=== PATIENT | male | born 1965 | race Hispanic/Latino ===

== ENCOUNTER → 2019-03-24 | Day surgery (SDC) | payer BC ==
[~2019-03-24] MED LIST: AMLODIPINE BESYL5 MG PO; ATORVASTATIN CA20 MG PO; GLIPIZIDE ER5 MG PO; JARDIANCE PO; LIDOCAINE HCL 2% LOCAL INJ 5 ML SDV VIAL INJ ONE; MIDAZOLAM HCL 2 MG/2 ML VIAL ONE; PROPOFOL IV EMULSION 10 MG/ML 20 ML VIAL ONE; VITAMIN E400 UNI1 PO
[2019-03-24 12:30] VITALS: BP 120/70
== END | disposition home or self-care (01) ==
LOC: OR 08:54
PROVIDERS: ATTEND Internal Medicine
DX: Z12.11 Encounter for screening for malignant neoplasm of colon (principal); D12.5 Benign neoplasm of sigmoid colon; D12.8 Benign neoplasm of rectum; K63.89 Other specified diseases of intestine; K21.9 Gastro-esophageal reflux disease without esophagitis; K76.0 Fatty (change of) liver, not elsewhere classified; E11.9 Type 2 diabetes mellitus without complications; I10 Essential (primary) hypertension; F10.10 Alcohol abuse, uncomplicated; Z88.1 Allergy status to other antibiotic agents; Z88.8 Allergy status to other drugs, medicaments and biological substances; Z01.810 Encounter for preprocedural cardiovascular examination; Z79.84 Long term (current) use of oral hypoglycemic drugs; Z80.0 Family history of malignant neoplasm of digestive organs
CPT/HCPCS: 36415; 45380; 45385; 82948; 93005; J2001; J2250; J2704; 45378; 45384

== ENCOUNTER 2020-03-19 13:23 | Observation (INO) | payer BC ==
[~2020-03-19] VITALS: Ht 172.7 cm; Wt 85.3 kg
[~2020-03-19 13:23] MED LIST changes: -LIDOCAINE HCL 2% LOCAL INJ 5 ML SDV VIAL INJ ONE; -MIDAZOLAM HCL 2 MG/2 ML VIAL ONE; -PROPOFOL IV EMULSION 10 MG/ML 20 ML VIAL ONE
[2020-03-19 14:17] LABS: BASOPHILS # (AUTO) 0.1 (0.0-0.1); BASOPHILS % 1.3 % (0.0-1.0); EOSINOPHILS # (AUTO) 0.2 (0.0-0.4); EOSINOPHILS % 2.3 % (0.0-6.0); HEMOGLOBIN 14.3 g/dL (14.0-18.0); LYMPHOCYTES % 28.9 % (18.0-39.1); MEAN CORPUSCULAR HEMOGLOBIN 32.4 pg (28-32); MEAN CORPUSCULAR HGB CONC 35.8 g/dL (31-35); MEAN CORPUSCULAR VOLUME 90.5 fL (81-99); MONOCYTES # (AUTO) 0.7 (0.2-0.8); MONOCYTES % 10.5 % (4.4-11.3); NEUTROPHILS % 56.6 % (38.7-80.0); RED BLOOD COUNT 4.42 x10e6/uL (4.3-5.7); RED CELL DISTRIBUTION WIDTH 11.6 % (11.7-14.4)
[2020-03-19 14:28] LABS: INR 1.12; PARTIAL THROMBOPLASTIN TIME 27.5 seconds (23.8-35.5)
[2020-03-19 14:37] LABS: ALANINE AMINOTRANSFERASE 170 IU/L (0-55); ALBUMIN 4.5 g/dL (3.5-5.0); ALBUMIN/GLOBULIN RATIO 1.5 (0.8-2.0); ALKALINE PHOSPHATASE 81 IU/L (40-150); ANION GAP 12.8 mmol/L (8-16); BLOOD UREA NITROGEN 7 mg/dL (7-26); BUN/CREATININE RATIO 9 (6-25); CARBON DIOXIDE 23 mmol/L (22-29); CHLORIDE 102 mmol/L (98-107); CREATININE, SERUM 0.77 mg/dL (0.72-1.25); EST GLOMERULAR FILTRATION RATE > 60 ML/MIN (60-); GLUCOSE 140 mg/dL (74-118); POTASSIUM 3.8 mmol/L (3.5-5.1); SODIUM 134 mmol/L (136-145)
[2020-03-19 14:51] LABS: PLATELET COUNT 16 x10e3/uL (140-360)
[2020-03-19] MEDS ORDERED: METHYLPREDNISOLONE SOD SUCC 125 MG/2ML VIAL IV STA (15:01)
[2020-03-19 15:11] LABS: PLATELET ESTIMATE MARKEDLY DECREASED; PLATELET MORPHOLOGY COMMENT NORMAL; RBC MORPHOLOGY COMMENT NORMAL
--- NOTE | 2020-03-19 15:28 | Emergency Department Note ---
History of Present Illnes History of Present Illness Chief Complaint: General Medicine Complaints History of Present Illness This is a 55 year old male PATIENT IN FROM HOME; STATES HIS PCP SENT HIM FOR EVALUATION OF LOW PLATELETS. PATIENT STATES THAT HE HAD BLEEDING GUMS X 3 DAYS AND A SLIGHT NOSEBLEED. PATIENT DENIES PAIN, OR SHORTNESS OF BREATH. PATIENT ALERT AND ORIETNED, RESP EVEN AND NONLABORED, APPEARS IN NO DISTRESS, AMBULATORY WITHOUT ASSISTANCE. Historian: Patient Arrival Mode: Car [employer] Required: No Onset (how long ago): day(s) (5) Radiation: Reports non-radiation Severity: moderate Onset quality: sudden Timing of current episode: intermittent Progression: improving Chronicity: new Context: Denies recent illness Relieving factors: none Exacerbating factors: none Associated symptoms: Reports denies other symptoms Past Medical/Family History Physician Review I have reviewed the patient's past medical and family history. Any updates have been documented here. Past Medical History Recent Fever: No Clinical Suspicion of Infectio: No New/Unexplained Change in Ment: No Past Medical History: Hypertension, Diabetes, Liver Disease Other Medical History: FATTY LIVER Past Surgical History: Appendectomy, T&A Other Surgery: VASECTOMY Social History Smoking Cessation: Never Smoker Counseling Performed: No Alcohol Use: Social Any Illegal Drug Use: No TB Exposure/Symptoms: No Physically hurt or threatened: No Family History Family history of heart diseas: No Other Any Pre-Existing Lines (PICC,: No Review of Systems Review of Systems Constitutional: Reports no symptoms EENTM: Reports as per HPI Cardiovascular: Reports no symptoms Respiratory: Reports no symptoms Gastrointestinal: Reports no symptoms Genitourinary: Reports no symptoms Musculoskeletal: Reports no symptoms Integumentary: Reports no symptoms Neurological: Reports no symptoms Psychological: Reports no symptoms Endocrine: Reports no symptoms Hematological/Lymphatic: Reports no symptoms Physical Exam Related Data Allergies: Coded Allergies: cefuroxime (Verified Allergy, Unknown, RASH, 03/19/20) naproxen (Verified Allergy, Unknown, RASH, 03/19/20) Triage Vital Signs Vital Signs Date Time Temp Pulse Resp B/P (MAP) Pulse Ox O2 Delivery O2 Flow Rate FiO2 03/19/20 13:30 98.6 63 20 163/92 100 Room Air Vital signs reviewed: Yes Physical Exam CONSTITUTIONAL Constitutional: Present well-developed, Present well-nourished HENT HENT: Present normocephalic, Present atraumatic, Present oropharynx clear/moist, Present nose normal HENT L/R: Present left ext ear normal, Present right ext ear normal EYES Eyes: Reports PERRL, Reports conjunctivae normal NECK Neck: Present ROM normal PULMONARY Pulmonary: Present effort normal, Present breath sounds normal CARDIOVASCULAR Cardiovascular: Present regular rhythm, Present heart sounds normal, Present capillary refill normal, Present normal rate GASTROINTESTINAL Abdominal: Present soft, Present nontender, Present bowel sounds normal GENITOURINARY Genitourinary: Present exam deferred SKIN Skin: Present warm, Present dry MUSCULOSKELETAL Musculoskeletal: Present ROM normal NEUROLOGICAL Neurological: Present alert, Present oriented x 3, Present no gross motor or sensory deficits PSYCHOLOGICAL Psychological: Present mood/affect normal, Present judgement normal Results Laboratory Result Diagram: 03/19/20 1350 03/19/20 1350 Laboratory Laboratory Tests Test 03/19/20 13:50 White Blood Count 7.05 x10e3/uL (4.8-10.8) Red Blood Count 4.42 x10e6/uL (4.3-5.7) Hemoglobin 14.3 g/dL (14.0-18.0) Hematocrit 40.0 % (38.2-49.6) Mean Corpuscular Volume 90.5 fL (81-99) Mean Corpuscular Hemoglobin 32.4 pg (28-32) Mean Corpuscular Hemoglobin Concent 35.8 g/dL (31-35) Red Cell Distribution Width 11.6 % (11.7-14.4) Platelet Count 16 x10e3/uL (140-360) Neutrophils (%) (Auto) 56.6 % (38.7-80.0) Lymphocytes (%) (Auto) 28.9 % (18.0-39.1) Monocytes (%) (Auto) 10.5 % (4.4-11.3) Eosinophils (%) (Auto) 2.3 % (0.0-6.0) Basophils (%) (Auto) 1.3 % (0.0-1.0) Neutrophils # (Auto) 4.0 (2.1-6.9) Lymphocytes # (Auto) 2.0 (1.0-3.2) Monocytes # (Auto) 0.7 (0.2-0.8) Eosinophils # (Auto) 0.2 (0.0-0.4) Basophils # (Auto) 0.1 (0.0-0.1) Absolute Immature Granulocyte (auto 0.03 x10e3/uL (0-0.1) Platelet Estimate Markedly decreased Platelet Morphology Comment Normal Red Cell Morphology Comment Normal Prothrombin Time 15.0 seconds (11.9-14.5) Prothromb Time International Ratio 1.12 Activated Partial Thromboplast Time 27.5 seconds (23.8-35.5) Sodium Level 134 mmol/L (136-145) Potassium Level 3.8 mmol/L (3.5-5.1) Chloride Level 102 mmol/L (98-107) Carbon Dioxide Level 23 mmol/L (22-29) Anion Gap 12.8 mmol/L (8-16) Blood Urea Nitrogen 7 mg/dL (7-26) Creatinine 0.77 mg/dL (0.72-1.25) Estimat Glomerular Filtration Rate > 60 ML/MIN (60-) BUN/Creatinine Ratio 9 (6-25) Glucose Level 140 mg/dL (74-118) Calcium Level 9.0 mg/dL (8.4-10.2) Total Bilirubin 0.9 mg/dL (0.2-1.2) Aspartate Amino Transf (AST/SGOT) 80 IU/L (5-34) Alanine Aminotransferase (ALT/SGPT) 170 IU/L (0-55) Alkaline Phosphatase 81 IU/L (40-150) Total Protein 7.6 g/dL (6.5-8.1) Albumin 4.5 g/dL (3.5-5.0) Globulin 3.1 g/dL (2.3-3.5) Albumin/Globulin Ratio 1.5 (0.8-2.0) Lab results reviewed: Yes Assessment & Plan Medical Decision Making MDM REPORTED PLATELET COUNT OF 1, BLEEDING GUMS AND MILD PINK WHEN HE BLEW NOSE, IMPROVING SX'S - CHECK CBC, CHEM, PT/PTT, T&S - EVAL FOR ITP, TTP, ANEMIA, RENAL INSUFF Reassessment Reassessment ADMIT TO DR HAM, CALL TO DR ZUNIGA FOR CONSULT, SOLUMEDROL 125 MG IV GIVEN Assessment & Plan Final Impression: (1) Thrombocytopenia Depart Disposition: ADMITTED Last Vital Signs Date Time Temp Pulse Resp B/P (MAP) Pulse Ox O2 Delivery O2 Flow Rate FiO2 03/19/20 13:30 98.6 63 20 163/92 100 Room Air Home Meds Reported Medications Vitamin E Mixed (VITAMIN E) 400 Unit Capsule, PO DAILY 03/18/19 Atorvastatin Calcium (ATORVASTATIN CALCIUM) 20 Mg Tablet, 20 MG PO HS, #30 TAB 03/18/19 Glipizide (GLIPIZIDE ER) 5 Mg Tab.er.24, 10 MG PO DAILY 03/18/19 [Jardiance] No Conflict Check, 25 MG PO DAILY 03/18/19 Amlodipine Besylate (AMLODIPINE BESYLATE) 5 Mg Tablet, 5 MG PO DAILY, #30 TAB 03/18/19 Medications in the ED Methylprednisolone Sodium Succinate 125 mg ONCE STAT IV ; Start 03/19/20 at 15:01; Stop 03/19/20 at 15:07; Status DC PHIL LAFLEUR MD Mar 19, 2020 15:28
[2020-03-19] MEDS ORDERED: SODIUM CHLORIDE 0.9% 1000ML 1,000 ML IV SCH (15:30)
[2020-03-19] MEDS ORDERED: ONDANSETRON HCL INJ 2MG/ML 2ML 2 MG/ML VIAL IV PRN (15:30)
[2020-03-19] MEDS ORDERED: METHYLPREDNISOLONE SOD SUCC 125 MG/2ML VIAL ONE (18:19)
[2020-03-19] MEDS ORDERED: OMEPRAZOLE40 MG PO (20:15)
[2020-03-19 20:20] VITALS: BP 157/88
[2020-03-19 21:10] VITALS: BP 157/88
--- NOTE | 2020-03-19 21:26 | NUR ---
called and talked to Dr Jose about low platelet count, ordered solu medrol q6 and cbc daily
[2020-03-20] VITALS (8 sets, daily range): BP systolic 117–133; BP diastolic 73–88
[2020-03-20] MEDS: METHYLPREDNISOLONE SOD SUCC 125 MG/2ML VIAL IV SCH ×2 (00:28→05:07)
--- NOTE | 2020-03-20 02:58 | NUR ---
Pt resting in bed, denied pain. no needs voiced at this time. call light within reach.
[2020-03-20 06:32] LABS: BASOPHILS % 0.3 % (0.0-1.0); HEMATOCRIT 40.6 % (38.2-49.6); HEMOGLOBIN 14.5 g/dL (14.0-18.0); LYMPHOCYTES # (AUTO) 0.7 (1.0-3.2); LYMPHOCYTES % 9.3 % (18.0-39.1); MEAN CORPUSCULAR HEMOGLOBIN 31.8 pg (28-32); MEAN CORPUSCULAR HGB CONC 35.7 g/dL (31-35); MONOCYTES % 0.5 % (4.4-11.3); NEUTROPHILS # (AUTO) 7.1 (2.1-6.9); NEUTROPHILS % 89.5 % (38.7-80.0); RED BLOOD COUNT 4.56 x10e6/uL (4.3-5.7); RED CELL DISTRIBUTION WIDTH 11.7 % (11.7-14.4)
[2020-03-20 06:47] LABS: PLATELET COUNT 43 x10e3/uL (140-360)
[2020-03-20 06:57] LABS: ALANINE AMINOTRANSFERASE 151 IU/L (0-55); ALBUMIN 4.1 g/dL (3.5-5.0); ALBUMIN/GLOBULIN RATIO 1.4 (0.8-2.0); ALKALINE PHOSPHATASE 67 IU/L (40-150); ANION GAP 13.1 mmol/L (8-16); BLOOD UREA NITROGEN 11 mg/dL (7-26); BUN/CREATININE RATIO 13 (6-25); CALCIUM 8.4 mg/dL (8.4-10.2); CARBON DIOXIDE 21 mmol/L (22-29); CHLORIDE 106 mmol/L (98-107); CREATININE, SERUM 0.83 mg/dL (0.72-1.25); EST GLOMERULAR FILTRATION RATE > 60 ML/MIN (60-); GLUCOSE 259 mg/dL (74-118); POTASSIUM 4.1 mmol/L (3.5-5.1); SODIUM 136 mmol/L (136-145)
[2020-03-20 07:26] LABS: LYMPHOCYTES % (MANUAL) 6 % (19-48)
[2020-03-20 07:27] LABS: PLATELET ESTIMATE MARKEDLY DECREASED; PLATELET MORPHOLOGY COMMENT NORMAL; RBC MORPHOLOGY COMMENT NORMAL
[2020-03-20 07:28] LABS: MONOCYTES % (MANUAL) 1 % (3.4-9.0); NEUTROPHILS % (MANUAL) 93 % (40-74)
--- NOTE | 2020-03-20 07:30 | NUR ---
received report from BARRETT Marshall for transfer of care. pt in stable condition.
[2020-03-20] MEDS ORDERED: PANTOPRAZOLE SOD 40 MG TABEC PO PRN (10:45)
[2020-03-20] MEDS ORDERED: HYDRALAZINE HCL 20 MG/ML VIAL IV PRN (10:45)
[2020-03-20] MEDS: PREDNISONE 20 MG TAB PO SCH (13:56)
--- NOTE | 2020-03-20 16:34 | NUR ---
informed MARTIN Brewer of pt's blood sugar trending upwards. low dose sliding scale ordered with [facility].
[2020-03-20] MEDS ORDERED: DEXTROSE 50% SYRINGE 50 ML IV PRN (16:45)
[2020-03-20] MEDS: INSULIN REGULAR, HUMAN 100 UNIT/1 ML 3ML VIAL SQ SCH ×2 (17:41→21:30)
--- NOTE | 2020-03-20 19:05 | NUR ---
Bedside rounds completed with morning nurse. Pt alert and oriented to name, standing on side of bed fully dressed in home clothes, refuses gown. Denies pain at this time. Able to reach call light. Bed low and locked.
[2020-03-20] MEDS ORDERED: MELATONIN 5 MG TABLET PO PRN (21:00)
[2020-03-21] VITALS: BP 126/66
[2020-03-21 04:00] VITALS: BP 125/80
[2020-03-21 05:22] LABS: BASOPHILS % 0.2 % (0.0-1.0); HEMATOCRIT 39.6 % (38.2-49.6); HEMOGLOBIN 13.9 g/dL (14.0-18.0); LYMPHOCYTES # (AUTO) 1.7 (1.0-3.2); LYMPHOCYTES % 13.7 % (18.0-39.1); MEAN CORPUSCULAR HEMOGLOBIN 31.6 pg (28-32); MEAN CORPUSCULAR HGB CONC 35.1 g/dL (31-35); MONOCYTES # (AUTO) 0.9 (0.2-0.8); NEUTROPHILS # (AUTO) 9.8 (2.1-6.9); NEUTROPHILS % 78.3 % (38.7-80.0); PLATELET COUNT 118 x10e3/uL (140-360); RED CELL DISTRIBUTION WIDTH 11.8 % (11.7-14.4)
[2020-03-21 05:38] LABS: ANION GAP 11.5 mmol/L (8-16); BLOOD UREA NITROGEN 14 mg/dL (7-26); BUN/CREATININE RATIO 16 (6-25); CALCIUM 8.6 mg/dL (8.4-10.2); CARBON DIOXIDE 24 mmol/L (22-29); CHLORIDE 106 mmol/L (98-107); CREATININE, SERUM 0.85 mg/dL (0.72-1.25); EST GLOMERULAR FILTRATION RATE > 60 ML/MIN (60-); GLUCOSE 223 mg/dL (74-118); POTASSIUM 4.5 mmol/L (3.5-5.1); SODIUM 137 mmol/L (136-145)
[2020-03-21 07:32] VITALS: BP 124/77
[2020-03-21] MEDS: PREDNISONE 20 MG TAB PO SCH (07:51)
[2020-03-21] MEDS: INSULIN REGULAR, HUMAN 100 UNIT/1 ML 3ML VIAL SQ SCH (08:58)
[2020-03-21 09:00] VITALS: BP 124/77
[2020-03-21] MEDS ORDERED: PREDNISONE 20 MG TAB PO SCH (09:00)
[2020-03-21] MEDS ORDERED: AMLODIPINE BESYLATE 5 MG TAB PO SCH (09:00)
--- NOTE | 2020-03-21 10:05 | NUR ---
Pt preparing to discharge. No concerns noted. ROBERT MURGUIA Loss Claim Clerk Spiritual Care Department O: [phone]
--- NOTE | 2020-03-21 13:08 | Consultation ---
DATE OF CONSULTATION: 03/20/[address] Pavan Camara HISTORY OF PRESENT ILLNESS: Mr. Bliss is a 55-year-old male, who was referred to me for evaluation of thrombocytopenia of 14,000. The patient claims that his counts were 1000. The patient had bled while brushing his teeth. Subsequently, the patient was sent to the ER. Dr. Mathew had called me, I suggested prednisone 1 mg/kg per day. However, his answer was" you could start that tomorrow when you see this patient." I had called the nursing staff to start him on steroids once on the floor approximately 10 hours later, as these are not available to me unless they are put in the system and hence I cannot write any orders. SOCIAL HISTORY: He does drink alcohol. He needs to stop alcohol. FAMILY HISTORY: Noncontributory. ALLERGIES: REPORTED NONE. MEDICATIONS: At this time. 1. Ondansetron. 2. Methylprednisolone. REVIEW OF SYSTEMS: HEENT: Normal. CARDIAC: Normal. RESPIRATORY: Normal. GI: Normal. : Normal. MUSCULOSKELETAL: Normal. SKIN AND BREASTS: Normal. NEUROENDOCRINE: Normal. HEMATOLOGICAL: Low platelet count of 1000. PHYSICAL EXAMINATION: GENERAL: A moderately built male. He has some petechiae over the lower extremities as well as in the mouth. No adenopathy. HEART: Within normal limits. LUNGS: Clear. ABDOMEN: Soft. RECTAL: Deferred. CENTRAL NERVOUS SYSTEM: Essentially normal. EXTREMITIES: Essentially normal. LABORATORY DATA: Lab on admission showed a hemoglobin of 14.3, hematocrit of 40, white count of 7500, platelets are reported at 16,000. Chemistry; sodium of 134, potassium 3.8, chloride 102, CO2 of 23, BUN 7, creatinine 0.77, glucose 140, calcium 9, bilirubin 0.9, SGOT high at 80, SGPT high at 170, alkaline phosphatase 81. Serologies for COVID-19 reported negative. IMPRESSION: 1. Idiopathic thrombocytopenic purpura. 2. High LFT. PLAN, COMMENTS AND SUGGESTIONS: Suggest the patient to be treated with prednisone 1 mg/kg per day. Once the platelets are above 20,000 to 50,000, the patient can be discharged. I will follow this patient along with Dr. Vic Muro for weaning the prednisone. I have spoken to him at length the natural history of ITP, 70% of the people are cured with prednisone alone. However, at the time of weaning down the prednisone, the patient could relapse. If the patient cannot achieve a durable complete remission then next step would be to have a splenectomy. Prognosis remains very good. I will also do an ultrasound of the liver as an outpatient because of the high liver functions. Thank you very much for allowing me to participate in management of this patient. I will closely work with Dr. Vic Muro as in the past. MD SHAWN Reyes/MODL /[id number] cc: MD Vic Mendoza MD
--- NOTE | 2020-03-21 13:14 | Progress Note ---
DATE: 03/21/2020 Mr. Bliss is a 55-year-old male, referred to me for evaluation of low platelet count as per the history 1000, in the ER 14,000. The patient was treated with Solu-Medrol by the ER physician. Subsequently treated with prednisone 1 mg/kg by me. The patient's platelets went up to 43,000 on 03/20/2020, 118,000 on 03/21/2020. The patient at the present time is being discharged on prednisone 90 mg a day, to be weaned off slowly. The patient also has had an increment in his blood sugar. I would leave it up to Dr. Vic Muro to handle this as he probably has a tendency to develop diabetes mellitus. Thank you very much for allowing me to participate in management of this patient during this hospitalization. Dakota Jose MD MAQ/MODL /[id number] cc: MD Pavan Denton MD
--- NOTE | 2020-03-22 09:23 | Discharge Summary ---
ADMISSION DIAGNOSES: 1. Idiopathic thrombocytopenic purpura. 2. Hypertension. 3. Type 2 diabetes. 4. Gastroesophageal reflux disease. DISCHARGE DIAGNOSES: 1. Idiopathic thrombocytopenic purpura. 2. Hypertension. 3. Type 2 diabetes. 4. Gastroesophageal reflux disease. HISTORY: Type 2 diabetes, hypertension, GERD, fatty liver. SURGICAL HISTORY: Vasectomy, tonsillectomy, appendectomy. FAMILY HISTORY: The patient's nephew has diabetes. The patient's mom, uncle, and grandfather had cancer. SOCIAL HISTORY: The patient admits to occasional alcohol use. HOSPITAL COURSE: A 55-year-old male admits with complaints of bleeding gums that lasted for 2-3 days. He says he did not bleed a lot, but it was constant. He noticed he had blood on the tissue when he wiped his nose as well. He went to his primary care had his labs checked and his primary care sent him to the hospital due to low platelet count. On admission, the placed platelet count was 16. Hematology was consulted and patient was started on prednisone. The prednisone slowly increased his platelets. On the day of discharge, his platelet is 118. Per Hematology, he can be discharged home with prescription for prednisone. He will follow up with primary care and Hematology in 1 to 2 weeks. He was advised to follow with primary care closely regarding his elevated blood sugars due to steroid use. He was also advised to refrain from alcohol use. The patient understands instructions and agrees to plan. Vital signs are stable. The patient is afebrile. Dictated by Daniella Douglass NP MD CAROLINA Mendoza/MODL /[id number]
== END 2020-03-21 10:30 | disposition home or self-care (01) ==
LOC: ER 13:57 → INTOOBSV 15:19 → ERHOLD 15:19 → MED/SURG 20:05
PROVIDERS: ADMIT Internal Medicine; ATTEND Internal Medicine
DX: D69.3 Immune thrombocytopenic purpura (principal); Z11.59 Encounter for screening for other viral diseases; K21.9 Gastro-esophageal reflux disease without esophagitis; E11.9 Type 2 diabetes mellitus without complications; K76.0 Fatty (change of) liver, not elsewhere classified
CPT/HCPCS: 36415 ×3; 80048; 80053 ×2; 82948 ×3; 85025 ×3; 85610; 85730; 86850; 86900; 99284; G0378 ×3; J1817; J2930 ×2; J7030; J7512 ×2; U0002